=== PATIENT | female | born 1940 | race Caucasian/White ===

== ENCOUNTER → 2016-10-23 | Day surgery (SDC) | payer OTHER ==
[~2016-10-23] MED LIST: ACETAMINOPHEN 1000 MG/100 ML VIAL IV ONE; BALANCED SALT SOLN OPHT IRRIG 15 ML BTL ONE; CELE200C PO; CRES20TA PO; LACTATED RINGER'S 1,000 ML BAG IV ONE; LACTATED RINGER'S 1000 ML INJ 1,000 ML ONE; LIDOCAINE 1%/EPINEPHrine 1:100,000 SOLN 50 ML VIAL ONE; LIDOCAINE 2%/EPINEPHrine PF 1:200,000 20ML SDV ONE; MAGN30TA2; METH1POW32; MIDAZOLAM HCL 2 MG/2 ML VIAL ONE; NEOMYCIN/POLYMYXIN/BACITRACIN OINT 15 GM TUBE ONE; NEOMYCIN/POLYMYXIN/HYDROCORT OTIC SUSP 10 ML BTL ONE; ONDANSETRON HCL 4 MG/2 ML VIAL IV PUSH ONE; PROPOFOL 200 MG/20 ML AMP IV ONE; ceFAZolin INJ 1,000 MG VIAL ONE
--- NOTE | 2016-10-24 09:01 | TN ---
cc: TEX STAPLETON M.D. DATE OF SURGERY 10/23/2016 PREOPERATIVE DIAGNOSIS Facial aging. POSTOPERATIVE DIAGNOSIS Facial aging. PROCEDURE Cervicofacial rhytidectomy with perioral fat injections. SURGEON Tex Stapleton MD ANESTHESIA LMA general. ESTIMATED BLOOD LOSS Minimal. COMPLICATIONS None. PROCEDURE She was properly consented, marked, properly anesthetized through an LMA device and diluted lidocaine was infiltrated throughout the head and neck and lower abdomen. A total of close to 200 cc in 250 cc of saline, 60 cc of 1% lidocaine with epinephrine was mixed. Utilizing the harvesting cannula, 60 cc of fat was harvested from the lower abdomen and was decanted and washed and suitable for injection with 20 cc. Of this I injected 10 cc per each side of the face including the nasolabial fold and marionette lines. Submental incision was carried out at this point dissecting all the way down to the base of the neck. Defatting of the pre and post retro-platysmaplasty was carried utilizing electrocautery. Plication of the platysma muscle was done anteriorly with the inferior medial myotomy in order to accentuate the cervicomental angle. Through pre and postauricular incisions the flap was elevated connecting our neck incision dissection. A SMAS plication was done utilizing Mersilene 4-0 and lateral platysmaplasty using Mersilene suture material. The same material was utilized for the SMAS plication. Finally, after the SMAS plication was performed and lateral platysmaplasty then wound, the lipectomy of the neck noted to contour nicely. I proceeded to close the incisions after applying ARTISS TissuGlu with minimal amount of tension on the skin in the preauricular area, closed with 5-0 Monocryl suture and 5-0 fast-absorbing. Then in the postauricular 3-0 Monocryl sutures and steven. Absorbent dressing was applied thereafter. Overall the patient tolerated the procedure well. She was awakened and extubated in the operating room. She was transferred back to the postanesthesia care unit in stable condition. No complications appreciated and the patient tolerated the procedure fairly well. MD PERLA Arreola/CASH Chase: 10/23/2016/10:52 AM /8:58 AM [id number]
== END | disposition home or self-care (01) ==
LOC: ESDC 06:27
PROVIDERS: ATTEND Plastic Surgery
DX: Z41.1 Encounter for cosmetic surgery (principal)
CPT/HCPCS: 00300; 11954; 15828; J0131; J0690; J2250; J2405; J3010; J7120